=== PATIENT | female | born 1930 | race Caucasian/White ===

== ENCOUNTER → 2017-03-17 | Outpatient (CLI) | payer OTHER ==
[~2017-03-17] VITALS: Ht 157.5 cm; Wt 67.6 kg
[~2017-03-17] MED LIST: ACETAMINOPHEN-1 EAC1; ACETAMINOPHEN-1 EAC1 PO; APAP W/CODEINE1 TA2 PO; APRISO0.375 GM PO; BYSTOLIC 5 MG5 M1 PO; BYSTOLIC20 MG PO; CALCITRIOL0.5 MCG PO; CARAFATE 11 GM/10 M1 PO; CARVEDILOL25 MG PO; CHLORTHALIDONE; CHLORTHALIDONE25 MG PO; CIPROFLOXACIN500 M1 PO; COLACE100 MG PO; COLESTID1 GM PO; COREG CR80 MG PO; COUMADIN 2 MG TA2 M1; DEMADEX20 MG PO; DEXILANT60 MG PO; DILTIAZEM 24HR180 MG PO; DILTIAZEM 24HR240 M1 PO; DIOVAN 80 MG TA80 M1 PO; DIOVAN HCT 3201 EACH PO; DIOVAN160 MG PO; DIOVAN320 MG PO; DOCUSATE SODIU100 MG PO; DRAMAMINE50 MG PO; ELIQUIS2.5 MG PO; ENTOCORT EC3 MG PO; ERGOCALCIF50000 UNIT PO; FENTANYL PA25 MCG/HR TD; GABAPENTIN 100100 MG; GABAPENTIN 100100 MG PO; GUANFACINE HCL1 MG PO; HYDROCODONE-AP1 EAC6 PO; HYDROCORTISONE45 G1 TP; HYTRIN 2MG CAPSU2 M1 PO; HYTRIN 2MG CAPSU2 MG PO; IMODIUM A-D2 MG PO; KEFLEX500 MG PO; KLOR-CON 1010 MEQ PO; LASIX 20 MG TAB20 MG PO; LASIX 40 MG TAB40 M2 PO; LEVOTHROID150 MC1 PO; LEVOTHROID50 MCG PO; LEVOTHYROXIN0.025 MG PO; LEVOTHYROXINE0.05 MG PO; LEVSIN0.125 MG SUBLING; LOPERAMIDE 2 MG2 M1 PO; MELOXICAM7.5 MG PO; METOCLOPRAMIDE 55 M1 PO; MOBIC7.5 MG PO; MORPHINE SULFAT15 M3; NORCO 5-325 TA1 EACH PO; OSCIMIN SL0.125 MG SUBLING; OXYCODONE-ACET1 EAC2 PO; OXYCONTIN30 MG PO; OXYCONTIN40 MG PO; PERCOCET 10-321 EACH PO; PERCOCET 10-651 EACH PO; PERCOCET 5-3251 EACH PO; PRILOSEC 20 MG20 MG PO; PRILOSEC PO; PROCTOSOL HC; PROCTOSOL HC 2.5%; PROLIA60 MG/1 ML INJ; TIROSINT25 MCG PO; TRAZODONE 150150 M1 PO; TRAZODONE HCL50 MG PO; Trazodone PO; VIBERZI100 MG PO; VITAMIN D 5050000 I1 PO; VITAMIN D1000 UNI1 PO; VITAMIN D250000 UNIT PO; XARELTO15 MG PO; ZOFRAN ODT4 MG PO
[2017-03-17 12:33] VITALS: BP 133/68
== END | disposition home or self-care (01) ==
LOC: PAIN 06:53
DX: M54.16 Radiculopathy, lumbar region (principal); Z98.890 Other specified postprocedural states

== ENCOUNTER → 2017-04-14 | Outpatient (CLI) | payer OTHER ==
[~2017-04-14] VITALS: Ht 157.5 cm; Wt 67.0 kg
[~2017-04-14] MED LIST changes: +MEDROLDOSEPACK PO; +VOLTAREN GEL 1100 G2 TOP
--- NOTE | ~2017-04-14 | HPC ---
[facility] [place] [address] PAIN MANAGEMENT CONSULTATION Name: NIMCOAYDEN GORDON Room #: REG Morgan Burkett#: [id number] Admission: 04/14/17 Attend Phys: Ismael Edwards DO Discharge: Date of : 30 Report #: [id number] THIS REPORT FOR: //name// CC: Brock Edwards The patient is an 87-year-old female, I have treated for some time for lumbar radiculopathy, though only recently I took over management of her high risk complex medications. She has been carried on a supratherapeutic load of over 120 mg of morphine a day (OxyContin 40 mg b.i.d.). We dropped that down to OxyContin 30 mg b.i.d. with Tylenol No.3 for breakthrough pain at last visit on 03/17/2017. Returns to pain clinic today noting that while this had afforded good relief, she has had significant concerns recently with exacerbation of pain in her right wrist. She was seen for prolonged visit today, from 15:00-15:30, greater than 50% of this 25+ minute visit was spent counseling the patient. Right hand and wrist pain developed after a trip to [place] with her grandchildren. She was ultimately seen in the ER, diagnosed with de Quervain's tenosynovitis of right wrist. She is wearing a splint presently. She states she started taking her Tylenol No.3 more aggressively, was taking 4-6 and then yesterday 10 in a day. She presents to pain clinic noting subjective pain score is 0 in her chronic back pain, but 8 in her right wrist. She is wearing a brace on her right wrist. PHYSICAL EXAMINATION: GENERAL: Shows an 87-year-old female, BMI is 27 kilograms per meter squared. VITAL SIGNS: Blood pressure is modestly elevated ____, pulse 65, respirations 18. NEUROLOGIC: Alert and oriented to person, place and time, judged to be a reasonable historian. Again wearing a splint in the right wrist with some subjective swelling and tenderness at the primary carpal-metacarpal joint, radial aspect of her hand. Cervical range of motion is full. Rises from chair. Gait is tandem. Lower extremity strength is preserved. We reviewed the fact that opiate medications are being used to provide analgesia adequate to support activities of daily living, not attempting to achieve a specific pain score on the 0-10 Visual Analog Scale. The current opiate medications are providing sufficient analgesia to allow the patient to participate in activities of daily living. The patient is not exhibiting any aberrant behavior suggestive of drug diversion. The patient is not having any adverse reactions to medications. The patient is not suffering from daytime somnolence or mental acuity changes. The patient is managing opiate-induced constipation with appropriate woej-kod-mbcwwqv agents and dietary considerations. The patient was counseled on concern for caution with operating [address] [address] PAIN MANAGEMENT CONSULTATION Name: NIMCOAYDEN GORDON Room #: REG RIGOBERTO Burkett#: [id number] Admission: 04/14/17 Attend Phys: Ismael Edwards DO Discharge: Date of : 30 Report #: [id number] a motor vehicle while using opiate medications. A physical exam was performed and the patient's functional status was evaluated. All patients with back pain were advised against the bed rest greater than 4 days and were advised to return to normal activities. Pain score assessment was noted and the treatment plan was reviewed with the patient. All current medications, both prescribed and OTC were reviewed and reconciled on the electronic medical record. Tobacco screening was accomplished and smoking cessation was advised when indicated. BMI was noted and diet/exercise modification was recommended for all patients following outside normal parameters. I reviewed with the patient today their responsibilities to safeguard prescription medications, reviewed their responsibility to utilize medications only as prescribed by the physician. They are to seek and receive pain medications only from 1 physician group ( [facility]). They are to use 1 pharmacy and keep the clinic informed if they change pharmacies. Their responsibilities include making followup visits in a timely fashion and to avoid abrupt discontinuation of medication usage. Their responsibilities further include bringing their medications (bottles from the pharmacy with residual pills) to the visit for possible confirmation of pill counts and the patient understands it is their responsibility to submit to random drug screens to ensure both that the medications prescribed are present, and that no other controlled substances are present. All prescriptions provided today were generated electronically. ASSESSMENT: 1. Chronic pain syndrome requiring complex medication management. 2. De Quervain's tenosynovitis right wrist. 3. Lumbar radiculopathy status post decompressive laminectomy. RECOMMENDATION: Discussion with the patient today about therapeutic option. She is on a blood thinner for DVT, cannot take nonsteroidal anti-inflammatory medications. We elected to give the patient a Medrol Dosepak today, start her on Voltaren gel topically for the right wrist, this should ultimately quite down. Continue OxyContin 30 mg b.i.d. (she has 4 OxyContin 40 mg tablets left, I suggested she take them daily for the next 4 days with OxyContin 30 at night and then resume OxyContin 30 mg b.i.d. We will continue the patient on Tylenol No.3 for breakthrough pain, limit 4 a day. Follow up in 1 month for reevaluation. Hopefully, we can drop p.r.n. Tylenol down. Discharged in good and stable condition. I did ____ investigation on the patient, she gets all of her prescriptions [facility] [address] [place] [address] PAIN MANAGEMENT CONSULTATION Name: NIMCOAYDEN GORDON Room #: REG Morgan Burkett#: [id number] Admission: 04/14/17 Attend Phys: Ismael Edwards DO Discharge: Date of : 30 Report #: [id number] filled in [place], ____ is unremarkable. Discharged in good and stable condition after prolonged visit. By: [id number] Ismael Edwards DO /nt
[2017-04-14 14:36] VITALS: BP 186/78
== END | disposition home or self-care (01) ==
LOC: PAIN 07:16
DX: M65.4 Radial styloid tenosynovitis [de Quervain] (principal); G89.4 Chronic pain syndrome; M25.531 Pain in right wrist; M54.16 Radiculopathy, lumbar region; I12.9 Hypertensive chronic kidney disease with stage 1 through stage 4 chronic kidney disease, or unspecified chronic kidney disease; N18.3 Chronic kidney disease, stage 3 (moderate); Z79.891 Long term (current) use of opiate analgesic; Z98.890 Other specified postprocedural states; Z79.899 Other long term (current) drug therapy; Z88.8 Allergy status to other drugs, medicaments and biological substances; Z88.2 Allergy status to sulfonamides

== ENCOUNTER → 2017-05-15 | Outpatient (CLI) | payer OTHER ==
[~2017-05-15] VITALS: Ht 157.5 cm; Wt 66.3 kg
[~2017-05-15] MED LIST changes: +OXYCONTIN20 M1 PO
--- NOTE | ~2017-05-15 | HPC ---
[facility] [place] [address] PAIN MANAGEMENT CONSULTATION Name: AYDEN RINALDI Room #: REG RIGOBERTO Burkett#: [id number] Admission: 05/15/17 Attend Phys: Ismael Edwards DO Discharge: Date of : 30 Report #: [id number] THIS REPORT FOR: //name// CC: Brock Edwards DATE OF SERVICE: 05/15/2017 The patient is an 87-year-old female being treated for lumbar radiculopathy, status post decompressive laminectomy, complex medication management and component of right wrist pain. Last visit 04/14/2017. We had weaned the patient down from OxyContin 40 mg b.i.d. to 30 mg b.i.d. back in March. In April, she was doing well. She uses Tylenol No. 3 for breakthrough pain and tells me today she really has used it very little this past month. I had given her Medrol Dosepak last visit because she had some wrist pain (De Quervain tenosynovitis in the right wrist). That resolved, but now she has some pain in the left hand with swelling in the left middle finger. Her general road supervisor physician, Dr. Wilson thought this may represent a pseudogout, he ordered multiple diagnostic studies, lab studies having been drawn, but not returned. He did again start her on another Medrol Dosepak. She returns to pain clinic today noting overall pain is 2 on a VAS, although she does have some pain in that left hand, this is primarily her back pain. She notes she is able to participate in most activities of daily living. She is using a walker today, which she uses occasionally. She uses a cane occasionally and around the house, she simply "furniture walks." She is desirous of continuing to wean her opiate. Today, we discussed moving down from OxyContin 30 mg b.i.d. to 20 mg b.i.d. Continue with Tylenol No. 3 for breakthrough pain. Told her we will try this for 30 days and follow up. We reviewed the fact that opiate medications are being used to provide analgesia adequate to support activities of daily living, not attempting to achieve a specific pain score on the 0-10 Visual Analog Scale. The current opiate medications are providing sufficient analgesia to allow the patient to participate in activities of daily living. The patient is not exhibiting any aberrant behavior suggestive of drug diversion. The patient is not having any adverse reactions to medications. The patient is not suffering from daytime somnolence or mental acuity changes. The patient is managing opiate-induced constipation with appropriate bcql-dgs-jymufml agents and dietary considerations. The patient was counseled on concern for caution with operating a motor vehicle while using opiate medications. A physical exam was performed and the patient's functional status was evaluated. All patients with back pain were advised against the bed rest greater than 4 days and were advised to return to normal activities. Pain score assessment was noted and the treatment plan was reviewed with the patient. All current [address] [address] PAIN MANAGEMENT CONSULTATION Name: MANICAROLYNAYDEN Room #: KYLER Burkett#: [id number] Admission: 05/15/17 Attend Phys: Ismael Edwards DO Discharge: Date of : 30 Report #: [id number] medications, both prescribed and OTC were reviewed and reconciled on the electronic medical record. Tobacco screening was accomplished and smoking cessation was advised when indicated. BMI was noted and diet/exercise modification was recommended for all patients following outside normal parameters. I reviewed with the patient today their responsibilities to safeguard prescription medications, reviewed their responsibility to utilize medications only as prescribed by the physician. They are to seek and receive pain medications only from 1 physician group ( [facility]). They are to use 1 pharmacy and keep the clinic informed if they change pharmacies. Their responsibilities include making followup visits in a timely fashion and to avoid abrupt discontinuation of medication usage. Their responsibilities further include bringing their medications (bottles from the pharmacy with residual pills) to the visit for possible confirmation of pill counts and the patient understands it is their responsibility to submit to random drug screens to ensure both that the medications prescribed are present, and that no other controlled substances are present. All prescriptions provided today were generated electronically. ASSESSMENT AND PLAN: Symptomatic lumbar radiculopathy, status post decompressive laminectomy requiring high risk complex medication management. The patient is desirous of weaning off of opiates. We have elected to continue today OxyContin 30 mg b.i.d. weaned to 20 mg b.i.d., prescription for same written (OxyContin 20 mg b.i.d., #60 tablets). She does not require a prescription for Tylenol No. 3. She has about half with #120 tablet prescription left. I told her we will phone that prescription in if needed. By: [id number] Ismael Edwards DO /nt
[2017-05-15 13:30] VITALS: BP 141/64
== END | disposition home or self-care (01) ==
LOC: PAIN 06:19
DX: M54.16 Radiculopathy, lumbar region (principal); Z79.899 Other long term (current) drug therapy; Z98.890 Other specified postprocedural states

== ENCOUNTER → 2017-06-12 | Outpatient (CLI) | payer OTHER ==
[~2017-06-12] VITALS: Ht 157.5 cm; Wt 69.1 kg
[~2017-06-12] MED LIST changes: +OXYCONTIN15 MG PO
--- NOTE | ~2017-06-12 | HPC ---
[facility] [place] [address] PAIN MANAGEMENT CONSULTATION Name: NIMCOAYDEN Mary Room #: REG FRANCISCO Kwadwo#: [id number] Admission: 06/12/17 Attend Phys: Ismael Edwards DO Discharge: Date of : 30 Report #: [id number] THIS REPORT FOR: //name// CC: Brock Edwards The patient is a very pleasant 87-year-old female, long treated for symptomatic lumbar radiculopathy status post decompressive laminectomy, component of complex medication management with some right wrist pain. We had been weaning high dose opiates, down from OxyContin 40 mg b.i.d. to 30 and last visit down to 20 mg b.i.d. Returns to pain clinic today noting the wean is doing well. Chronic lumbar radicular pain is the biggest issue, she has some ongoing left L3 radicular pain. She had good relief with the lumbar epidural injection back in March (prior injection had been in August 2016). She notes greater than 60% relief for 6 weeks with pain gradually recurring. Again, doing reasonably well with the opiate wean as well. Notes her general pain score averages 5 on a VAS. Pain back and bilateral legs, left greater than right. PHYSICAL EXAMINATION: Shows an 87-year-old female, BMI is 27.9 kg/m2. Vital signs are stable as noted on the EMR. Does not use tobacco products. Rises from chair using armrest. Modestly antalgic gait. Positive straight leg raise on the left. Diffuse tenderness across the low back. No discrete trigger points are noted. We reviewed diagnostic findings including MRI from 11/10/2015, noting prior laminectomy at L5-S1 with some subluxation, mild facet degenerative changes at L4-L5 and L3-L4, slight left convex thoracolumbar curvature. We reviewed the fact that opiate medications are being used to provide analgesia adequate to support activities of daily living, not attempting to achieve a specific pain score on the 0-10 Visual Analog Scale. The current opiate medications are providing sufficient analgesia to allow the patient to participate in activities of daily living. The patient is not exhibiting any aberrant behavior suggestive of drug diversion. The patient is not having any adverse reactions to medications. The patient is not suffering from daytime somnolence or mental acuity changes. The patient is managing opiate-induced constipation with appropriate ivqv-gsh-ifebfbm agents and dietary considerations. The patient was counseled on concern for caution with operating a motor vehicle while using opiate medications. A physical exam was performed and the patient's functional status was evaluated. All patients with back pain were advised against the bed rest greater than 4 days and were advised to return to normal activities. Pain score assessment was noted and the treatment plan was reviewed with the patient. All current medications, both prescribed and OTC were reviewed and reconciled on the electronic medical record. Tobacco screening was accomplished and smoking cessation was advised when indicated. BMI was noted and diet/exercise [address] [address] PAIN MANAGEMENT CONSULTATION Name: AYDEN RINALDI Room #: REG RIGOBERTO Burkett#: [id number] Admission: 06/12/17 Attend Phys: Ismael Edwards DO Discharge: Date of : 30 Report #: [id number] modification was recommended for all patients following outside normal parameters. I reviewed with the patient today their responsibilities to safeguard prescription medications, reviewed their responsibility to utilize medications only as prescribed by the physician. They are to seek and receive pain medications only from 1 physician group ( [facility]). They are to use 1 pharmacy and keep the clinic informed if they change pharmacies. Their responsibilities include making followup visits in a timely fashion and to avoid abrupt discontinuation of medication usage. Their responsibilities further include bringing their medications (bottles from the pharmacy with residual pills) to the visit for possible confirmation of pill counts and the patient understands it is their responsibility to submit to random drug screens to ensure both that the medications prescribed are present, and that no other controlled substances are present. All prescriptions provided today were generated electronically. ASSESSMENT: 1. Chronic pain syndrome, requiring high risk complex medication management. 2. Acute exacerbation of lumbar radiculopathy in this patient status post decompressive laminectomy. RECOMMENDATIONS: 1. Continue opiate wean, we will drop from OxyContin 20 mg b.i.d. to 15 mg b.i.d. for 20 days, after 20 days (40 tablets), I will have her drop down to one tablet q. a.m. for 20 days. Continue Tylenol No. 3 for breakthrough pain, in fact I have taken the liberty of writing for 120 Tylenol No. 3. If when the patient drops to OxyContin 15 mg 1 a day from 2 a day and notes any significant opiate withdrawal symptoms, we will have her simply continue b.i.d. and I will see her back in 1 month, we will likely plan on dropping down to OxyContin 10 mg b.i.d. with a similar plan, b.i.d. for 20 days and then 1 a day for 20 days, then off. 2. Epidural injection under fluoroscopy today. PROCEDURE: Lumbar epidural injection under fluoroscopy. PROCEDURE NOTE: After both written and informed consent to include risk of spinal cord damage, increased pain, weakness and dural puncture, the patient was taken to the fluoroscopy suite, placed in the prone position. After sterile prep and drape, a skin wheal with lidocaine was raised. A 22-gauge epidural Tuohy needle was inserted in the midline at L3-L4 with good loss to resistance. Negative aspiration for cerebrospinal fluid or blood was noted. Then 1 mL of Omnipaque under biplanar fluoroscopy showed good spread within the epidural space. This was followed with 80 mg of triamcinolone plus 1 mL of 1.5% preservative-free Xylocaine, 0.5 mL Xylocaine was then injected to flush the [facility] [address] [place] [address] PAIN MANAGEMENT CONSULTATION Name: AYDEN RINALDI Room #: [facility]#: [id number] Admission: 06/12/17 Attend Phys: Ismael Edwards DO Discharge: Date of : 30 Report #: [id number] needle; it was removed. The patient was monitored for an appropriate period of time and discharged in good and stable condition. <ELECTRONICALLY SIGNED> By: Ismael Edwards DO 06/13/17 0949 [id number] [id number] Ismael Edwards DO /nt
[2017-06-12 13:04] VITALS: BP 153/75
== END | disposition home or self-care (01) ==
LOC: PAIN 07:09
DX: M54.16 Radiculopathy, lumbar region (principal); G89.4 Chronic pain syndrome; M25.531 Pain in right wrist; I12.9 Hypertensive chronic kidney disease with stage 1 through stage 4 chronic kidney disease, or unspecified chronic kidney disease; N18.3 Chronic kidney disease, stage 3 (moderate); D64.9 Anemia, unspecified; Z98.890 Other specified postprocedural states; Z79.891 Long term (current) use of opiate analgesic; Z88.2 Allergy status to sulfonamides; Z88.6 Allergy status to analgesic agent; Z88.8 Allergy status to other drugs, medicaments and biological substances; Z88.1 Allergy status to other antibiotic agents; Z79.899 Other long term (current) drug therapy

== ENCOUNTER → 2017-08-04 | Outpatient (CLI) | payer OTHER ==
[~2017-08-04] VITALS: Ht 157.5 cm; Wt 68.2 kg
[~2017-08-04] MED LIST changes: +TRAMADOL 50 MG50 MG PO
--- NOTE | ~2017-08-04 | HPC ---
[facility] [place] [address] PAIN MANAGEMENT CONSULTATION Name: AYDEN RINALDI Mary [id number] Admission: 08/04/17 Attend Phys: Ismael Edwards DO Discharge: Date of : 30 Report #: [id number] THIS REPORT FOR: //name// CC: Brock Edwards DATE OF SERVICE: 08/04/2017 The patient is an 87-year-old female, prior seen for symptomatic lumbar radiculopathy status post decompressive laminectomy, chronic pain requiring high risk complex medication management, component of SI mediated pain, history of right wrist pain. Last visit 06/12/2017, we had successfully continued opiate wean. She had been taking OxyContin 40 mg b.i.d., weaned down to 20, 15, 10 and then off. Returns to pain clinic today taking only Tylenol No. 3 for breakthrough pain. She does note that last weekend while standing in line for greater than an hour developed acute axial back pain, left low back. No radicular pain is noted. PHYSICAL EXAMINATION: Shows a pleasant 87-year-old female, BMI is 27.5 kilograms per meter squared. Vital signs show significant hypertension, blood pressure 215/90, repeated over time and came down to about 170/72, pulse is in the 60s. Alert and oriented to person, place and time, judged to be a reasonable historian, +1 pretibial edema lower extremities, left greater than right. Does have an antalgic gait favoring the low back and left leg. Positive straight leg raise on the left. Grossly positive Rossi test on the left. ASSESSMENT: Symptomatic left sacroiliac mediated pain by clinical exam and history, component of lumbar radiculopathy status post decompressive laminectomy with good relief following epidural injections, last injection was in June, prior injection had been in March. ASSESSMENT: 1. Symptomatic left sacroiliac mediated pain. 2. Lumbar radiculopathy by history, status post decompressive laminectomy. RECOMMENDATIONS: 1. Left SI joint injection under fluoroscopy today. 2. Follow up in 2 weeks for reevaluation. Consider epidural injection under fluoroscopy if indicated clinically. PROCEDURE: Left SI joint injection under fluoroscopy. PROCEDURE NOTE: After written informed consent was obtained, the patient was taken to the fluoroscopy suite and placed in prone position. After sterile prep and drape, skin wheal was raised. A 22-gauge sty[place] [address] PAIN MANAGEMENT CONSULTATION Name: AYDEN RINALDI Mary Room #: REG RIGOBERTO Burkett#: [id number] Admission: 08/04/17 Attend Phys: Ismael Edwards DO Discharge: Date of : 30 Report #: [id number] contact the inferior aspect of left SI joint. Negative aspiration was accomplished. 1 mL of Omnipaque was injected which showed spread within the joint. This was followed with 40 mg triamcinolone plus 2 mL of 0.5% preservative-free bupivacaine. Needle was removed, area was cleansed, Band-Aids applied. The patient monitored for an appropriate period of time, discharged in good and stable condition. <ELECTRONICALLY SIGNED> By: Ismael Edwards DO 08/06/17 0834 [id number] Ismael Edwards DO /nt
[2017-08-04 11:05] VITALS: BP 213/96
== END | disposition home or self-care (01) ==
LOC: PAIN 07-10 09:03
DX: M53.3 Sacrococcygeal disorders, not elsewhere classified (principal); M54.16 Radiculopathy, lumbar region; I12.9 Hypertensive chronic kidney disease with stage 1 through stage 4 chronic kidney disease, or unspecified chronic kidney disease; N18.3 Chronic kidney disease, stage 3 (moderate); D64.9 Anemia, unspecified; G89.29 Other chronic pain; Z79.891 Long term (current) use of opiate analgesic; Z98.890 Other specified postprocedural states; Z88.0 Allergy status to penicillin; Z88.2 Allergy status to sulfonamides; Z88.8 Allergy status to other drugs, medicaments and biological substances; Z88.6 Allergy status to analgesic agent; Z79.899 Other long term (current) drug therapy

== ENCOUNTER → 2017-08-19 | Outpatient (CLI) | payer OTHER | LOC: MRI 13:21 | DX: M47.26 Other spondylosis with radiculopathy, lumbar region (principal); M81.0 Age-related osteoporosis without current pathological fracture; M48.061 Spinal stenosis, lumbar region without neurogenic claudication; M53.3 Sacrococcygeal disorders, not elsewhere classified ==

== ENCOUNTER → 2017-08-21 | Outpatient (CLI) | payer OTHER ==
[~2017-08-21] VITALS: Ht 157.5 cm; Wt 66.4 kg
--- NOTE | ~2017-08-21 | HPC ---
[facility] [place] [address] PAIN MANAGEMENT CONSULTATION Name: AYDEN RINALDI Mary [facility] [id number] Admission: 08/21/17 Attend Phys: Ismael Edwards DO Discharge: Date of : 30 Report #: [id number] THIS REPORT FOR: //name// CC: Brock Edwards HISTORY OF PRESENT ILLNESS: The patient is an 87-year-old female, prior seen in the pain clinic on 08/04/2017, being treated for symptomatic lumbar radiculopathy status post decompressive laminectomy. She was given a left SI joint injection at last visit. She returns to the pain clinic today. She notes that the prior injection afforded 20% relief for 2 days and then, the pain recurred. She notes the pain currently is in the low back down the left leg to the ankle. Has some paresthesia and numbness and tingling. She rates the pain is 7 on VAS. PHYSICAL EXAMINATION: GENERAL: Shows an 87-year-old female, BMI is 26.8 kilograms per meter squared. VITAL SIGNS: Show modest hypertension 165/90, pulse 70 and respirations 20. MUSCULOSKELETAL: Rises to the armrest, modestly antalgic gait, positive straight leg raise on the left with decreased left hip flexion, lower extremity extension strength. ASSESSMENT: Symptomatic lumbar radiculopathy by clinical exam and history. RECOMMENDATIONS: 1. Referral to physical therapy for core strengthening and balance. 2. Epidural injection under fluoroscopy today, L4-L5 (the patient has been off her Eliquis for 3 days). Resume Eliquis tonight. Follow up in 4 weeks to evaluate efficacy. We did review MRI from 08/19/2017. Notes that L4-L5 with slightly asymmetric left-sided disk bulging, facet arthropathy, bilateral ligamentum flavum hypertrophy and mild left inferior neural foraminal encroachment. Canal is minimally narrowed to 8 mm. ASSESSMENT: Symptomatic lumbar radiculopathy. PROCEDURE: Lumbar epidural injection under fluoroscopy. PROCEDURE NOTE: After both written and informed consent to include risk of spinal cord damage, increased pain, weakness and dural puncture, the patient was taken to the fluoroscopy suite, placed in the prone position. After sterile prep and drape, a skin wheal with lidocaine was raised. A 22-gauge epidural Tuohy needle was inserted in the midline at L4-L5 with good loss to resistance. Negative aspiration for cerebrospinal fluid or blood was noted. Then 1 mL of Omnipaque under biplanar fluoroscopy showed good spread [place] [address] PAIN MANAGEMENT CONSULTATION Name: AYDEN RINALDI Mary Room #: REG [facility] BeatriceJosse#: [id number] Admission: 08/21/17 Attend Phys: Ismael Edwards DO Discharge: Date of : 30 Report #: [id number] space. This was followed with 80 mg of triamcinolone plus 1 mL of 1.5% preservative-free Xylocaine, 0.5 mL Xylocaine was then injected to flush the needle; it was removed. The patient was monitored for an appropriate period of time and discharged in good and stable condition. <ELECTRONICALLY SIGNED> By: Ismael Edwards DO 08/22/17 0650 1634 0136 Ismael Edwards DO /nt
[2017-08-21 11:17] VITALS: BP 165/90
== END | disposition home or self-care (01) ==
LOC: PAIN 07:12
DX: M54.16 Radiculopathy, lumbar region (principal); G89.29 Other chronic pain; I12.9 Hypertensive chronic kidney disease with stage 1 through stage 4 chronic kidney disease, or unspecified chronic kidney disease; N18.3 Chronic kidney disease, stage 3 (moderate); Z88.6 Allergy status to analgesic agent; Z98.890 Other specified postprocedural states; Z88.2 Allergy status to sulfonamides; Z88.8 Allergy status to other drugs, medicaments and biological substances; Z79.899 Other long term (current) drug therapy

== ENCOUNTER → 2017-09-18 | Outpatient (CLI) | payer OTHER ==
[~2017-09-18] VITALS: Ht 157.5 cm; Wt 69.1 kg
[~2017-09-18] MED LIST changes: +ALLOPURINOL 10100 M1 PO; +OXYCODONE HCL E30 MG PO; +ROXICODONE5 M2 PO
--- NOTE | ~2017-09-18 | HPC ---
[facility] [place] [address] PAIN MANAGEMENT CONSULTATION Name: PAULINOHELGAAYDEN Room #: REG RIGOBERTO Calderon.#: [id number] Admission: 09/18/17 Attend Phys: Ismael Edwards DO Discharge: Date of : 30 Report #: [id number] THIS REPORT FOR: //name// CC: Brock Edwards HISTORY OF PRESENT ILLNESS: The patient is a very pleasant 87-year-old female being treated for lumbar radiculopathy status post decompressive laminectomy, neuropathic pain, neurogenic claudication and some component of SI mediated pain requiring high risk complex medication management. The patient was last seen in pain clinic on 08/21/2017. Did a lumbar epidural injection at L4-L5 with some transient improvement in baseline pain, the patient notes perhaps 20% for a week. She returns to pain clinic today for prolonged visit, she was seen from 11:00 a.m. to 11:30 greater than 50% of this 25+ minute visit was spent counseling the patient. Earlier this year she had come to me requesting assistance with weaning off of high dose opiate analgesics. She had been stable on OxyContin 40 mg b.i.d. (roughly 120 mEq of morphine daily) for a number of years. She felt she was doing better overall and we assisted her with a gradual wean. She actually got down to no opiate analgesics at last visit, but again was having some increasing pain. She returns to pain clinic today noting pain has become quite problematic since I last saw her. She did contact her medical technologist generalist physician, Dr. Brock Wilson, who did resume oxycodone extended release 20 mg b.i.d. She presents to pain clinic today noting pain remains problematic. She rates it 6 on a VAS, primarily back, left leg to the ankle. She describes chronic pain with burning dysesthesia in leg. Again, rates at 6 on a visual analog scale. Most concerningly, she notes that she has developed some insensate urinary incontinence. Neurogenic claudication seems to be getting worse, walking and standing greater than about 5 minutes exacerbates significant left lumbar radicular pain. She has subjective weakness in the left leg. PHYSICAL EXAMINATION: Shows a pleasant 87-year-old female, BMI is 27.9 kilograms per meter squared. Blood pressure 155/86, pulse 70, respirations 16. Rises from chair using armrest, has an antalgic gait favoring the left leg. Left leg strength is about 3/5 to all muscle groups tested, about 4/5 on the right. Straight leg raise is grossly positive at 30 degrees on the left. We reviewed diagnostic findings including MRI, which I had ordered, was obtained on 08/19/2017. L4-L5 notes some disc bulging slightly asymmetric to the left, facet arthropathy, ligamentum flavum hypertrophy combining to cause some narrowing at about 8 mm in the central canal. There is some patchy marrow [address] [address] PAIN MANAGEMENT CONSULTATION Name: AYDEN RINALDI Room #: REG RIGOBERTO Burkett#: [id number] Admission: 09/18/17 Attend Phys: Ismael Edwards DO Discharge: Date of : 30 Report #: [id number] signal changes, possibly representing metastatic disease, myeloma, sclerosis, the study was essentially unchanged from prior study of 10/2015. ASSESSMENT: Symptomatic lumbar radiculopathy with ongoing radicular symptoms, neurogenic claudication and more concerningly development of insensate urinary incontinence. RECOMMENDATION: 1. We will increase oxycodone extended release to 30 mg b.i.d., I pointed out to the patient that this is essentially the ceiling dose of opiate analgesics recommended, 90 mEq of morphine daily. 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 Norris Canales, Neurosurgery). 2. Have the patient follow up after a neurosurgical evaluation to review options and to evaluate efficacy of medication changes. We may consider resuming a membrane stabilizing agent, either sodium or calcium channel (gabapentin versus Trileptal). Discharged in good and stable condition after prolonged visit, greater than 50% of time spent counseling the patient, reviewing therapeutic options and concerns. <ELECTRONICALLY SIGNED> By: Ismael Edwards DO 09/19/17 0757 [id number] 2147 Ismael Edwards DO /nt
[2017-09-18 10:54] VITALS: BP 155/86
== END ==
LOC: PAIN 07:18
DX: M54.16 Radiculopathy, lumbar region (principal); G95.19 Other vascular myelopathies; Z79.899 Other long term (current) drug therapy; Z98.890 Other specified postprocedural states

== ENCOUNTER → 2017-10-06 | Outpatient (CLI) | payer OTHER ==
[~2017-10-06] VITALS: Ht 157.5 cm; Wt 68.2 kg
--- NOTE | ~2017-10-06 | HPC ---
[facility] [place] [address] PAIN MANAGEMENT CONSULTATION Name: MANITERESAHELGAAYDEN Room #: REG [facility] Kwadwo#: [id number] Admission: 10/06/17 Attend Phys: Ismael Edwards DO Discharge: Date of : 30 Report #: [id number] THIS REPORT FOR: //name// CC: Brock Edwards DATE OF SERVICE: 10/06/2017 HISTORY OF PRESENT ILLNESS: The patient is a very pleasant 87-year-old female being treated for lumbar radiculopathy status post decompressive laminectomy. She has a significant ongoing pain. MRI on 08/19/2017 notes L4-L5 to have facet hypertrophy and asymmetric disk on the left side narrowing the neural foramen. Right side is maintained. Canals narrowed to about 8 mm. She has fairly classic left L4 radicular pain that is significantly impacting function. She rates her pain despite resumption of oxycodone (OxyContin 30 mg b.i.d.) up to an 8-9 with activity. PHYSICAL EXAMINATION: GENERAL: Shows pleasant 87-year-old female, BMI is 27.5 kilograms per meter squared. VITAL SIGNS: Stable. MUSCULOSKELETAL: Rises from chair using armrest, uses a walker for balance. Positive straight leg raise on left with decreased left hip flexion, lower extremity extension strength. ASSESSMENT: Symptomatic lumbar radiculopathy, status post decompressive laminectomy, requiring complex medication management. RECOMMENDATION: 1. We will renew OxyContin 30 mg b.i.d. for another 30 days. 2. I have endeavored to reach out to [facility] to see if we can get her in to see a surgeon for the opinion regarding decompression. 3. Left L4-L5 transforaminal epidural injection under fluoroscopy today. PROCEDURE: Left transforaminal epidural injection under fluoroscopy. The patient has been off Eliquis for 3 days. PROCEDURE NOTE: After both written and informed consent was obtained including risk of spinal cord damage, infection, increased pain and paralysis, the patient agreed to proceed. The patient was taken to the fluoroscopy suite, placed in a prone position with appropriate abdominal bolstering. After sterile prep with ChloraPrep and sterile drape, a skin wheal with 1% Xylocaine was raised. A 22 gauge 4-1/2 inch epidural Tuohy needle was inserted. From an oblique approach into the posterior-superior aspect of the left L4-L5 neural foramen with continuous pressure on the glass syringe plunger for loss of resistance. [facility] [address] [place] [address] PAIN MANAGEMENT CONSULTATION Name: MANITERESAHELGAAYDEN Room #: REG [facility].#: [id number] Admission: 10/06/17 Attend Phys: Ismael Edwards DO Discharge: Date of : 30 Report #: [id number] syringe was filled with 2 cc of 0.1 Xylocaine. The glass loss of resistance syringe was removed. A low volume extension tubing was connected, negative aspiration was accomplished for cerebrospinal fluid or blood. 1 mL of Omnipaque was injected which showed spread both within the epidural space and laterally along the nerve root. This was followed with 80 mg of triamcinolone plus 1 mL of 1.5% preservative-free Xylocaine. Needle was partially withdrawn, 0.5 mL of Xylocaine was injected to clear the needle and the needle was removed. The area was cleansed, band-aid was applied. The patient was allowed to ambulate to the recovery room, discharged in good and stable condition. <ELECTRONICALLY SIGNED> By: Ismael Edwards DO 10/08/17 1417 1641 0405 Ismael Edwards DO /nt
[2017-10-06 14:07] VITALS: BP 125/55
== END | disposition home or self-care (01) ==
LOC: PAIN 07:10
DX: M54.16 Radiculopathy, lumbar region (principal); Z98.890 Other specified postprocedural states

== ENCOUNTER → 2017-11-13 | Outpatient (CLI) | payer OTHER ==
[~2017-11-13] VITALS: Ht 157.5 cm; Wt 68.0 kg
--- NOTE | ~2017-11-13 | HPC ---
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 Last visit 10/06/2017, we did a left L4-L5 transforaminal epidural injection, which did afford some transient relief. We have continued on OxyContin 30 mg b.i.d. with nominal efficacy. Referred to [facility]. We had an MRI on 08/19/2017. It did show asymmetric disk bulging at L4-L5, some foraminal encroachment and stenosis. There was patchy marrow infiltration and a CT was recommended, this has been accomplished. The patient returns to pain clinic today, seen in company of her daughter, who is supportive. We had a prolonged visit, the patient was seen from 10:33-11:00 a.m., greater than 50% of this 25+ minute visit was spent counseling the patient. The patient notes that she is frustrated with ongoing pain concerns. [facility] suggested that patient really is not a further surgical candidate at this point. They did suggest possibly a spinal cord stimulator or an intrathecal pump. The patient is complaining primarily of pain, low back and left buttock. Radiates into the groin down to the thigh to the ankle. Pain is present immediately upon arising. She notes functional status is significantly impacted. She has been using a walker to help with balance and ambulation. She rates her pain fairly high 8-9 on a VAS when standing. Physical exam otherwise shows a pleasant 87-year-old female, BMI is 27.4 kilograms per meter squared. 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 Obvious osteoarthritic nodules in the hands. Blood pressure 147/68, pulse 71. She has not fallen in the last 3 months, but again she is using a walker. She is on Eliquis presently. Opiate consent to treat contract has been signed. CT scan of the lumbar spine was performed at [facility] on 10/20/2017. Findings note diffuse bone demineralization. [facility] [address] [place] [address] PAIN MANAGEMENT CONSULTATION Name: AYDEN RINALDI Room #: REG [facility]#: [id number] Admission: 11/13/17 Attend Phys: Ismael Edwards DO Discharge: Date of : 30 Report #: [id number] spondylolisthesis at L5-S1, some mild lumbar levoscoliosis is noted. Moderate to severe narrowing at L5-S1 interspace. Atherosclerotic calcifications near the renal artery noted incidentally. No comment made regarding the patchy infiltration noted on the MRI, suspect this is simply related to the generalized demineralization. Along with this, CT scan of the pelvis was accomplished, status post right total hip arthroplasty, degenerative changes are noted, SI joints demonstrate some mild sclerotic changes. Left hip osteoarthritis, status post right total hip arthroplasty. Long discussion with the patient and her daughter today about therapeutic options. We had weaned completely off of opiates at one point last year, back up to OxyContin 30 mg b.i.d. She feels that really the opiates do not necessarily affect her pain. I pointed out that intrathecal pump is merely a different way to deliver opiates as the pain is not terribly opiate sensitive. This treatment option might not make as much sense. We had trialled a spinal cord stimulator 6 years ago back in 2011. At that time, the stimulators were lower frequency and the patient did have a lot of paresthesia, which she did not like. I did discuss the fact that high frequency stimulators at this point with the ability to have stimulation, which eclipses the body's ability to perceive stimulation completely limits the subjective paresthesia and has been associated with a better improved functional status for most patients. The patient is interested in possibly pursuing this option. She is also interested in intrathecal pump possible trial. I suggested that if we were to trial this, I would defer to Dr. Ferraro. He has been doing intrathecal pump trials in a very academic manner, placing an intrathecal catheter and utilizing multi-dosing including a placebo dose for evaluation of efficacy. Today, I did renew her OxyContin 30 mg b.i.d. I did take the liberty of adding oxycodone 5 mg up to t.i.d. for breakthrough pain. We reviewed the fact that opiate medications are being used to provide analgesia adequate to support activities of daily living, not attempting to achieve a specific pain score on the 0-10 Visual Analog Scale. The current opiate medications are providing sufficient analgesia to allow the patient to participate in activities of daily living. The patient is not exhibiting any aberrant behavior suggestive of drug diversion. The patient is not having any adverse reactions to medications. The patient is not suffering from daytime somnolence or mental acuity changes. The patient is managing opiate-induced constipation with appropriate [id number] agents and dietary considerations. The patient was counseled on concern for caution with operating a motor vehicle while using opiate medications. A physical exam was performed and the patient's functional status was evaluated. All patients with back pain were advised against the bed rest greater than 4 days and were advised to return to normal activities. Pain score assessment was [facility] [address] [place] [address] PAIN MANAGEMENT CONSULTATION Name: NIMCOAYDEN Room #: REG [facility].#: [id number] Admission: 11/13/17 Attend Phys: Ismael Edwards DO Discharge: Date of : 30 Report #: [id number] noted and the treatment plan was reviewed with the patient. All current medications, both prescribed and OTC were reviewed and reconciled on the electronic medical record. Tobacco screening was accomplished and smoking cessation was advised when indicated. BMI was noted and diet/exercise modification was recommended for all patients following outside normal parameters. I reviewed with the patient today their responsibilities to safeguard prescription medications, reviewed their responsibility to utilize medications only as prescribed by the physician. They are to seek and receive pain medications only from 1 physician group ( [facility]). They are to use 1 pharmacy and keep the clinic informed if they change pharmacies. Their responsibilities include making followup visits in a timely fashion and to avoid abrupt discontinuation of medication usage. Their responsibilities further include bringing their medications (bottles from the pharmacy with residual pills) to the visit for possible confirmation of pill counts and the patient understands it is their responsibility to submit to random drug screens to ensure both that the medications prescribed are present, and that no other controlled substances are present. All prescriptions provided today were generated electronically. Discharged in good and stable condition. I did give the patient print and video literature regarding high frequency Nevro spinal cord stimulator. <ELECTRONICALLY SIGNED> By: Ismael Edwards DO 11/19/17 0744 1204 1420 Ismael Edwards DO /nt
[2017-11-13 10:28] VITALS: BP 147/68
== END ==
LOC: PAIN 06:59
DX: M54.16 Radiculopathy, lumbar region (principal); M96.1 Postlaminectomy syndrome, not elsewhere classified; M47.897 Other spondylosis, lumbosacral region; Z79.899 Other long term (current) drug therapy

== ENCOUNTER → 2017-12-11 | Outpatient (CLI) | payer OTHER ==
[~2017-12-11] VITALS: Ht 157.5 cm; Wt 69.5 kg
[~2017-12-11] MED LIST changes: -ALLOPURINOL 10100 M1 PO
--- NOTE | ~2017-12-11 | HPC ---
[facility] [place] [address] PAIN MANAGEMENT CONSULTATION Name: NIMCOAYDEN Mary [id number] Admission: 12/11/17 Attend Phys: Ismael Edwards DO Discharge: Date of : 30 Report #: [id number] THIS REPORT FOR: //name// CC: Brock Edwards The patient is an 87-year-old female, prior seen in the pain clinic on 11/13/2017. She has ongoing lumbar radicular pain. I referred her to Dr. Ferraro, [facility], did not feel that she was a surgical candidate. Suggested to consider a spinal cord stimulator trial. We had trialled one in 2011, she did not like the paresthesia. I discussed at length last visit a high frequency spinal cord stimulator with no paresthesias. She seems to have forgotten a little bit about this. Returns to pain clinic today noting ongoing lumbar radicular pain going into both legs. She is requesting a repeat epidural injection, prior injection back in March afforded good relief for a number of months. Currently, she does note pain is 6-7 on a VAS. Pain in the buttocks, lateral legs and thighs to the feet. Exacerbated with standing, walking and bending. Burning dysesthesia quality. PHYSICAL EXAMINATION: Shows an 87-year-old female, BMI is 28 kilograms per meter squared. Blood pressure is 137/52, pulse 61, respirations are 20. She is alert and oriented to person, place, and time, judged to be a reasonable historian. Rises from chair using armrest, modestly antalgic gait, positive straight leg raise on the right greater than the left, but definitely bilaterally. ASSESSMENT: Symptomatic lumbar radiculopathy status post decompressive laminectomy. RECOMMENDATIONS: 1. Epidural injection under fluoroscopy today at L4-L5. 2. We again reviewed issues regarding spinal cord stimulator. I think she will be an excellent candidate for high frequency stimulator. She has contact information regarding psychologist required by most third libertarian payers. PROCEDURE: Lumbar epidural injection under fluoroscopy. The patient off of Eliquis for 3 days. PROCEDURE NOTE: After both written and informed consent to include risk of spinal cord damage, increased pain, weakness and dural puncture, the patient was taken to the fluoroscopy suite, placed in the prone position. After sterile prep and drape, a skin wheal with lidocaine was raised. A 22-gauge epidural Tuohy needle was inserted in the midline at L4-L5 with good loss to resistance. Negative aspiration for cerebrospinal fluid or blood was noted. Then 1 mL of Omnipaque under biplanar fluoroscopy showed good spread within the epidural [address] [address] PAIN MANAGEMENT CONSULTATION Name: AYDEN RINALDI Room #: REG RIGOBERTO Burkett#: [id number] Admission: 12/11/17 Attend Phys: Ismael Edwards DO Discharge: Date of : 30 Report #: [id number]. This was followed with 80 mg of triamcinolone plus 1 mL of 1.5% preservative-free Xylocaine, 0.5 mL Xylocaine was then injected to flush the needle; it was removed. The patient was monitored for an appropriate period of time and discharged in good and stable condition. The patient was told to resume Eliquis tonight. Follow up as needed for consideration for spinal cord stimulator. <ELECTRONICALLY SIGNED> By: Ismael Edwards DO 12/15/17 0822 1402 2141 Ismael Edwards DO /nt
[2017-12-11 10:45] VITALS: BP 137/52
== END | disposition home or self-care (01) ==
LOC: PAIN 07:19
DX: M54.16 Radiculopathy, lumbar region (principal); G89.29 Other chronic pain; I12.9 Hypertensive chronic kidney disease with stage 1 through stage 4 chronic kidney disease, or unspecified chronic kidney disease; N18.3 Chronic kidney disease, stage 3 (moderate); Z79.899 Other long term (current) drug therapy; Z98.890 Other specified postprocedural states; Z88.8 Allergy status to other drugs, medicaments and biological substances; Z88.2 Allergy status to sulfonamides; Z79.891 Long term (current) use of opiate analgesic

== ENCOUNTER → 2018-07-31 | Outpatient (CLI) | payer OTHER ==
[~2018-07-31] VITALS: Ht 157.5 cm; Wt 70.9 kg
[~2018-07-31] MED LIST changes: +ALLOPURINOL 10100 M1 PO; +COLCHICINE0.6 MG PO; +SENSIPAR 30 MG30 M1 PO
--- NOTE | ~2018-07-31 | HPC ---
[facility] [place] [address] PAIN MANAGEMENT CONSULTATION Name: NIMCOAYDEN Room #: REG RIGOBERTO AkhtarJosseSeanJosse#: [id number] Admission: 07/31/18 Attend Phys: Stefania Meyer MD Discharge: Date of : 30 Report #: [id number] THIS REPORT FOR: //name// CC: Brock Meyer DATE OF SERVICE: 07/31/2018 FOLLOWUP HISTORY: Low back pain that radiates down into the left buttocks and down into the left leg and stops in the calf. HISTORY: The patient is an 88-year-old female who has been seen in the past because of lumbar radiculopathy. She has undergone epidural steroid injections in the low back area and gleaned benefits from these. She returns today indicating that her pain is problematic. States that she has had a court later trial, which was not successful. She returns today for an epidural steroid injection. Notes that the pain radiates down into both legs on occasion. She has findings which were consistent with spinal stenosis. She has gleaned greater than 50% improvement from epidural steroid injections after their completion in the past. She returns today for consideration of another epidural steroid injection to help control her mitigate her pain. ALLERGIES: COMPAZINE, HYDROCODONE/LORTAB, TIGAN, DITROPAN, SULFA, DYAZIDE, TRIAMTERENE, NAPROSYN, CIPRO, CEFTIN, AMLODIPINE, GABAPENTIN, CATAPRES, PROZAC, SERTRALINE, MEPERIDINE, valsartan, Vasotec, Lexapro, rivaroxaban. CURRENT MEDICATIONS: Oxycodone 30 mg b.i.d., allopurinol 100 mg daily, chlorthalidone 25 mg, Bystolic 5 mg, valsartan 80 mg total 160 mg, Eliquis 2.5 mg b.i.d., vitamin D 1000 units, Imodium, Levsin 0.125 mg t.i.d., Prilosec, for hiatal hernia, Colace 100 mg, Synthroid 0.05 mg, thyroid, Hytrin 2 mg b.i.d. PAIN CLINIC ASSESSMENT/PQRS: 1. History of osteoarthritis involving the shoulder. The patient undergone physical therapy with effects on her hand from rheumatoid arthritis. 2. Height 5 feet 2 inches, weight 156 pounds, BMI is 28.6. 3. Vital signs: Blood pressure 122/61, pulse 67, respiratory rate 16, room air saturation 100%. 4. Pain intensity 02/08. 5. Fall risk. The patient has not fallen in the last 3 months. 6. Blood thinner. The patient is on a blood thinner, Eliquis. 7. History of hypertension. The patient has been treated for hypertension. 8. Opioids greater than 6 weeks. The patient gets her opioid medications through her primary physician Dr. Wilson. 9. Risk assessment tool, low risk 1/3 for opioid use. 10. Functional assessment tool. [address] [address] PAIN MANAGEMENT CONSULTATION Name: AYDEN RINALDI Room #: REG CL Kwadwo#: [id number] Admission: 07/31/18 Attend Phys: Stefania Meyer MD Discharge: Date of : 30 Report #: [id number] 11. Recreational drug use. The patient denies use of recreational drugs. 12. The patient has never smoked. 13. Alcohol: The patient denies frequent use of alcoholic beverages. PHYSICAL EXAMINATION: GENERAL: The patient is a well-developed, well-nourished white female. Appears her stated age. She is alert and oriented x 3. Her affect is appropriate. Speech is fluent. HEENT: Normocephalic, atraumatic. Extraocular eye muscles intact. Sclerae nonicteric. Hearing is within normal limits. NECK: Without adenopathy or JVD. HEART: Regular rate. LUNGS: Generally clear. ABDOMEN: Nontender. EXTREMITIES: Upper extremity muscle strength is judged to be 4/5 for the major muscle groups. Strength is judged to be 4+5. The patient has pain and discomfort with pain is radiating down into the lumbar area in the L4-L5 distribution. The patient was informed of possible complication of the procedure, which could include but are not limited to infection, increased muscle soreness, headache, bleeding, worsening of pain, no improvement in pain and the patient elects to proceed. PROCEDURE NOTE: The patient was taken to the procedure area. She is assisted in getting on the examination table. A pillow was placed under her abdomen to bolster her for improve positioning. Her back was sterilely prepped in the L5-S1 area. A 0.25% bupivacaine was then injected in the left L4-L5 midline area. Numerous attempts at placing the epidural were unsuccessful. We then went to the L5-S1 area. This area had been sterilely prepped with Betadine and infiltrated with 0.25% bupivacaine. A 17-gauge Tuohy with loss of resistance technique was used to gain access to the epidural space. There was no CSF, heme or paresthesia. A total of 80 mg Depo-Medrol, 40 mg triamcinolone and 0.25% bupivacaine was injected. The patient tolerated the procedure well. A total of 24 seconds fluoroscopy time was used. The patient's pain decreased to 3 at the time of discharge. We would like to thank you for letting us participate in her care. We hope she continues to improve. IMPRESSION: 1. Lumbar radiculopathy with pain radiating down into the low back area with history of spinal stenosis. 2. Hypertension. 3. Thyroid disease. 4. Stomach problems. [facility] [address] [place] [address] PAIN MANAGEMENT CONSULTATION Name: PAULINOHELGAAYDEN Room #: REG [facility] [id number] Admission: 07/31/18 Attend Phys: Stefania Meyer MD Discharge: Date of : 30 Report #: [id number] 5. Emotional problems and then we would follow the recommendations in the procedure note. <ELECTRONICALLY SIGNED> By: Stefania Meyer MD 08/05/18 [id number] Stefania Meyer MD /nt
[2018-07-31 10:15] VITALS: BP 122/61
== END | disposition home or self-care (01) ==
LOC: PAIN 08:33
DX: M54.16 Radiculopathy, lumbar region (principal); G89.29 Other chronic pain; I10 Essential (primary) hypertension; E07.9 Disorder of thyroid, unspecified; K31.9 Disease of stomach and duodenum, unspecified; F98.9 Unspecified behavioral and emotional disorders with onset usually occurring in childhood and adolescence; Z88.2 Allergy status to sulfonamides; Z88.8 Allergy status to other drugs, medicaments and biological substances; Z79.891 Long term (current) use of opiate analgesic; Z79.899 Other long term (current) drug therapy; Z79.01 Long term (current) use of anticoagulants

== ENCOUNTER → 2018-11-13 | Outpatient (CLI) | payer OTHER ==
[~2018-11-13] VITALS: Ht 157.5 cm; Wt 69.4 kg
[~2018-11-13] MED LIST changes: +BYSTOLIC10 MG PO; +ROCALTROL0.25 MCG PO; +ROXICODONE5 MG PO
--- NOTE | ~2018-11-13 | HPC ---
[facility] [place] [address] PAIN MANAGEMENT CONSULTATION Name: AYDEN RINALDI Room #: REG [facility] CENTERJosse.#: [id number] Admission: 11/13/18 ������������������ Attend Phys: Stefania Meyer MD Discharge: ������������������ Date of : 30 Report #: [id number] THIS REPORT FOR: //name// CC: Brock Meyer DATE OF SERVICE: 11/13/2018 PRIMARY CARE PHYSICIAN: Brock Wilson MD CHIEF COMPLAINT: Back and leg pain. HISTORY: The patient is an 88-year-old female who has been seen in the pain clinic in the past. She has pain and discomfort in the lower portion of her back. Experiencing pain is radiating down to the left side and involves her calf on both sides. She has a perception of some weakness in her left leg. She has been using her hands to go up and down stairs. She feels that leg might give way. She is using a walker at all times at this juncture. She notes that the oxycodone is not providing a significant amount of relief. She has undergone epidural steroid injections in the past and found some benefit from these. Pain at this point is in the upper 3/4 region of her leg. ALLERGIES: COMPAZINE, HYDROCODONE, TIGAN, DITROPAN, SULFA, DYAZIDE, TRIAMTERENE, NAPROSYN, CIPRO, CEFTIN, AMLODIPINE, GABAPENTIN, CATAPRES, PROZAC, SERTRALINE, DEMEROL, VALSARTAN, VASOTEC, LEXAPRO, RIVAROXABAN. CURRENT MEDICATIONS: Oxycodone 30 mg b.i.d., allopurinol 100 mg, chlorthalidone 25 mg, Bystolic 5 mg, valsartan 80 mg a total of 160, Eliquis 2.5 mg, vitamin D 1000 units, Imodium, Levsin 0.125 mg t.i.d., Prilosec for hiatal hernia, Colace 100 mg, Synthroid 0.05 mg, thyroid, Hytrin 2 mg b.i.d. PAIN CLINIC ASSESSMENT/PQRS: 1. Osteoarthritic changes involving her shoulders. 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 2. Height 5 feet 2 inches, weight 153 pounds, BMI is 28.0. 3. VITAL SIGNS: Blood pressure 142/68, pulse 69, respiratory rate 16, room air saturation 97%. Pain intensity 7/10. 4. Fall risk. The patient has not fallen in the last 3 months. 5. Blood thinner. The patient is on Eliquis and has stopped this medication with the thought of undergoing an injection. 6. Hypertension. The patient has been treated for hypertension. 7. Opioids greater than 6 weeks. The patient receives her medication from the pain clinic. 8. Risk assessment tool, low risk for opioid use. 9. Functional assessment . 10. Recreational drug use. The patient denies use of recreational drugs. [address] [address] PAIN MANAGEMENT CONSULTATION Name: PAULNIOHELGAAYDEN Room #: REG FRANCISCOMorgan Burkett#: [id number] Admission: 11/13/18 ������������������ Attend Phys: Stefania Meyer MD Discharge: ������������������ Date of : 30 Report #: [id number] 11. Tobacco: The patient has never smoked. 12. Alcohol: The patient denies use of alcoholic beverages. PHYSICAL EXAMINATION: GENERAL: The patient is a well-developed, well-nourished 88-year-old female. Appears her stated age. She is alert and oriented x 3. Her affect is appropriate. Speech is fluent. HEENT: Normocephalic, atraumatic. Extraocular eye muscles intact. Sclerae nonicteric. Mucous membranes are moist. NECK: Without adenopathy or JVD. HEART: Regular. LUNGS: Clear. ABDOMEN: Nontender. EXTREMITIES: Upper extremity muscle strength is judged to be of 4-/5 for the major muscle groups in the upper extremity. The patient has some pain and discomfort that is radiating down in the L3-L4 dermatomal distribution at this juncture, complains of some weakness. Has been using her cane. Has not fallen. IMPRESSION: Lumbar radiculopathy involving the L3-L4 distribution. RECOMMENDATIONS: We discussed treatment options with the patient. Risks and benefits of an epidural steroid injection were discussed. Possible complications of the procedure were reviewed. The patient elects to proceed. PROCEDURE NOTE: The patient was taken to the procedure area. She is assisted in getting on the examination table. Her back was sterilely prepped with a Betadine solution. 0.25% bupivacaine was infiltrated into the L3-L4 area. A 17-gauge Tuohy with loss of resistance technique was used to gain access to the epidural space. There was no CSF, heme or paresthesia. Total of 80 mg Depo-Medrol, 40 mg triamcinolone and 2 mL of 0.25% bupivacaine was injected. The patient tolerated the procedure well. She remained in the Pain Clinic for an appropriate amount of time. She will follow up in the future as needed. We would like to thank you for letting us participate in her care. Hope she continues to improve. ��������������������������������������������� ���������������������������������������� By: ��������������������������������������������� [id number] Stefania Meyer MD /SLAVA
[2018-11-13 10:17] VITALS: BP 142/68
--- NOTE | 2018-11-13 10:22 | NUR ---
Pain Clinic Assessment: 1. 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 Height: 5 ft. 2 in. 157.5 cm. Weight: 153.0 lb. oz. 69.400 kg. Patient's BMI: 28.0 3. Vital Signs: BP: 142/68 Pulse: 69 Resp: 16 Temp: 02 Sat: 97 ECG Mon: 4. Pain Intensity: 7 5. Fall Risk: Dizziness: N Needs help standing or walking: N Fallen in the last 3 months: N Fall risk comments: 6. Patient on Blood Thinner: MONSE 7. History of Hypertension: Y 8. Opioid Therapy greater than 6 weeks: N Opiate Contract Signed: 03/07/17 9. Risk Assessment Tool Provided: LOW RISK 1 10. Functional Assessment Tool: 11. Recreational Drug Use: Never Drug Type: Tobacco Use: Never Smoker Tobacco Type: Amount or Packs/day: How Many Years: Alcohol Use: No Frequency: Quant:
== END | disposition home or self-care (01) ==
LOC: PAIN 06:50
DX: M54.16 Radiculopathy, lumbar region (principal); G89.29 Other chronic pain; M19.011 Primary osteoarthritis, right shoulder; M19.012 Primary osteoarthritis, left shoulder; M06.2 Rheumatoid bursitis; I12.9 Hypertensive chronic kidney disease with stage 1 through stage 4 chronic kidney disease, or unspecified chronic kidney disease; N18.3 Chronic kidney disease, stage 3 (moderate); Z79.01 Long term (current) use of anticoagulants; Z79.899 Other long term (current) drug therapy; Z88.8 Allergy status to other drugs, medicaments and biological substances; Z86.718 Personal history of other venous thrombosis and embolism; Z88.2 Allergy status to sulfonamides; Z98.890 Other specified postprocedural states

== ENCOUNTER → 2019-02-22 | Outpatient (CLI) | payer OTHER ==
[~2019-02-22] VITALS: Ht 157.5 cm; Wt 69.1 kg
[~2019-02-22] MED LIST changes: +ULORIC40 MG PO
[2019-02-22 10:43] VITALS: BP 135/70
--- NOTE | 2019-02-22 10:59 | NUR ---
Pain Clinic Assessment: 1. 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 Height: 5 ft. 2 in. 157.5 cm. Weight: 152.4 lb. oz. 69.128 kg. Patient's BMI: 27.9 3. Vital Signs: BP: 135/70 Pulse: 70 Resp: 16 Temp: 02 Sat: 99 ECG Mon: 4. Pain Intensity: 5 5. Fall Risk: Dizziness: N Needs help standing or walking: N Fallen in the last 3 months: N Fall risk comments: 6. Patient on Blood Thinner: ANAHIS 7. History of Hypertension: Y 8. Opioid Therapy greater than 6 weeks: N Opiate Contract Signed: 03/07/17 9. Risk Assessment Tool Provided: LOW RISK 1 10. Functional Assessment Tool: 11. Recreational Drug Use: Never Drug Type: Tobacco Use: Never Smoker Tobacco Type: Amount or Packs/day: How Many Years: Alcohol Use: No Frequency: Quant:
--- NOTE | 2019-02-23 13:28 | HPC ---
[facility] [place] [address] PAIN MANAGEMENT CONSULTATION Name: AYDEN RINALDI Room #: REG [facility].#: [id number] Admission: 02/22/19 ������������������ Attend Phys: Lise Peña Discharge: ������������������ Date of : 30 Report #: [id number] THIS REPORT FOR: //name// CC: Lise Wilson MD DATE OF SERVICE: 02/22/2019 CHIEF COMPLAINT: Back pain and left hip pain. HISTORY OF PRESENT ILLNESS: This is an 88-year-old female who has returned to the pain clinic today for a refill of her oxycodone. She tells me that she has been experiencing increasing pain in her left hip that does radiate towards her left knee. She feels that her leg is weaker than it was before. She has not fallen, but uses her walker at all times as she feels like she would give out. She tells me that she is going to talk to Dr. Wilson about seeing an orthopedic. She believes that this pain is in her hip, not from her back radiating into her hip. She does have low back pain as well. Her pain score today is 5/10, worse with walking and activity and standing. Medications are helpful as well as sitting. The patient tells me she has no problems with constipation as long as she takes [id number] medications and no problems with daytime sleepiness. We did talk about the fact that she is getting her long-acting OxyContin from Dr. Wilson and at her last visit in October, when she had her lumbar epidural steroid injection by Dr. Meyer, he did discuss that he would be willing to have Dr. Wilson write her oxycodone 5 mg tablets as well to make it more convenient for the patient; therefore, she does not have two doctors writing her narcotics. The patient tells me she must have not heard that part of the conversation because she agreed that would be easier for her to get everything from one physician. I explained to her we will write one prescription today and then Dr. Wilson could write for it in the future. Then if she needs to return to us for epidurals, she can gladly have those done. She tells me the epidural was quite helpful and she had not realized that it had had already been 3 months since her last injection. She tells me that she is on her Xarelto today, so she will make an appointment since it helped her at least 50% for greater than a month. She will call for an appointment when she feels that she needs to have an epidural performed again. ALLERGIES: COMPAZINE, TOLIN, TIGAN, DITROPAN, SULFA, HYDROCODONE, HYDROCHLOROTHIAZIDE, DYAZIDE, NAPROXEN, CIPRO, ADHESIVE, CEFTIN, AMLODIPINE, GABAPENTIN, CLONIDINE, ENALAPRIL, PROZAC, ZOLOFT, DEMEROL, VALSARTAN, LEVOFLOXACIN AND LEXAPRO. CURRENT LIST OF MEDICATIONS: Uloric, oxycodone 5 mg, potassium 10 mEq, Bystolic 10 mg, calcitriol, OxyContin 30 mg b.i.d., chlorthalidone 25 mg, Eliquis [address] [address] PAIN MANAGEMENT CONSULTATION Name: AYDEN RINALDI Room #: REG [facility].#: [id number] Admission: 02/22/19 ������������������ Attend Phys: Lise DOT COMPLIANCE MANAGER Hocker Discharge: ������������������ Date of : 30 Report #: [id number] 2.5 mg, vitamin D, hyoscyamine p.r.n., Prilosec, Colace, Synthroid 50 mcg and Hytrin 2 mg. 1. PQRS: The patient has arthritic changes involving her shoulders and her hips and rheumatoid arthritis in her hands. Height is 5 feet 2 inches, weight is 152, BMI is 27. Vital signs, 135/70, pulse is 70, respirations 16 and oxygen sat 99. Pain score is 5/10. Fall risk, denies dizziness. Does need help walking, uses a walker, and has not fallen in the last 3 months. Blood thinners, she is on Eliquis. She does take medicine for hypertension. Opioid therapy is greater than 6 weeks; therefore, an opioid signed contract is not on the chart since she gets them from two doctors. Risk assessment is low. Functional assessment is 42/70. Recreational drug use, she denies. She is not a smoker and does not drink alcohol. 2. We did check the prescription monitoring system. The patient is filling appropriately for her medications and we did encourage her to get them from one physician, Dr. Wilson. PHYSICAL EXAMINATION: GENERAL: This patient is a well-developed, well-nourished 88-year-old female, who appears her stated age. She is alert and orientated and her affect is appropriate. HEENT: Normocephalic, atraumatic. Extraocular eye muscles are intact. Mucous membranes are moist. NECK: Without adenopathy or JVD. EXTREMITIES: Upper extremity strength judged to be 4/5 for major muscle groups in the upper extremities. The patient does complain of some lumbar back tenderness. The patient's pain is in her left hip today, worse with weightbearing. Does have pain with flexion and extension. Lower extremity strength judged to be 4/5 bilaterally. 1. IMPRESSION: 2. 1. Lumbar radiculopathy involving the L3-L4 distribution, left hip pain. 3. 2. Osteoarthritis. 3. Complex medical management of opioid medications. We reviewed the fact that opiate medications are being used to provide analgesia adequate to support activities of daily living, not attempting to achieve a specific pain score on the 0-10 Visual Analog Scale. The current opiate medications are providing sufficient analgesia to allow the patient to participate in activities of daily living. The patient is not exhibiting any aberrant behavior suggestive of drug diversion. The patient is not having any adverse reactions to medications. The patient is not suffering from daytime somnolence or mental acuity changes. The patient is managing opiate-induced constipation with appropriate ycur-klk-biumywn agents and dietary considerations. The patient was counseled on concern for caution with operating [address] [address] PAIN MANAGEMENT CONSULTATION Name: NIMCOAYDEN Mary Room #: REG [facility].#: [id number] Admission: 02/22/19 ������������������ Attend Phys: Lise Peña Discharge: ������������������ Date of : 30 Report #: [id number] a motor vehicle while using opiate medications. A physical exam was performed and the patient's functional status was evaluated. All patients with back pain were advised against the bed rest greater than 4 days and were advised to return to normal activities. Pain score assessment was noted and the treatment plan was reviewed with the patient. All current medications, both prescribed and OTC were reviewed and reconciled on the electronic medical record. Tobacco screening was accomplished and smoking cessation was advised when indicated. BMI was noted and diet/exercise modification was recommended for all patients following outside normal parameters. I reviewed with the patient today their responsibilities to safeguard prescription medications, reviewed their responsibility to utilize medications only as prescribed by the physician. They are to seek and receive pain medications only from 1 physician group ( [facility]). They are to use 1 pharmacy and keep the clinic informed if they change pharmacies. Their responsibilities include making followup visits in a timely fashion and to avoid abrupt discontinuation of medication usage. Their responsibilities further include bringing their medications (bottles from the pharmacy with residual pills) to the visit for possible confirmation of pill counts and the patient understands it is their responsibility to submit to random drug screens to ensure both that the medications prescribed are present, and that no other controlled substances are present. All prescriptions provided today were generated electronically. PLAN: 1. We discussed treatment options with the patient today. I encouraged the patient to get her narcotics from one physician and I believe that Dr. Wilson since she writes her OxyContin 30 mg tablets, that he would be willing to write her oxycodone. That would be easier for the patient if she would get them only from him. The patient tells me that she will talk to him about this. 2. I encouraged the patient if she needs another epidural steroid injection to make sure she is able to go off her blood thinner and then call for an appointment. It has been greater than 3 months since her last injection, which she received at least 50% improvement for greater than one month. 3. The patient has been complaining of left hip pain. She will speak with Dr. Wilson regarding Orthopedic that she should go to since the one that had replaced her right hip, she believes, is retired since it was 20 years ago. 4. Prescription given today for oxycodone 5 mg b.i.d., #[address] Patricio Faulkner did see the patient and collaborated care today. ��������������������������������������������� <ELECTRONICALLY SIGNED> ���������������������������������������� By: Lise Peña ��������������������������������������������� 02/23/19 1328 [id number] Lise Peña /racheal
== END ==
LOC: PAIN 06:48
DX: M54.16 Radiculopathy, lumbar region (principal); M16.12 Unilateral primary osteoarthritis, left hip; Z79.891 Long term (current) use of opiate analgesic; Z88.8 Allergy status to other drugs, medicaments and biological substances; Z88.2 Allergy status to sulfonamides

== ENCOUNTER → 2019-04-30 | Outpatient (CLI) | payer OTHER ==
[~2019-04-30] VITALS: Ht 160 cm; Wt 65.8 kg
--- NOTE | ~2019-04-30 | HPC ---
[facility] [place] [address] PAIN MANAGEMENT CONSULTATION Name: AYDEN RINALDI Mary Room #: REG RIGOBERTO BeatriceSeanJosse#: [id number] Admission: 04/30/19 ������������������ Attend Phys: Stefania Meyer MD Discharge: ������������������ Date of : 30 Report #: [id number] THIS REPORT FOR: //name// CC: Brock Meyer DATE OF SERVICE: 04/30/2019 CHIEF COMPLAINT: "Pain radiating down into the left knee area." HISTORY: The patient is an 89-year-old female who has been seen in the past and undergone injections because of chronic pain involving her legs. She continues to have some pain and discomfort in lower portion of her back. Pain that radiates down the left side also involves her calf. She has had some perception of weakness in the left leg. She uses her hands when going up and down stairs. She feels that her leg might give way. She continues to walk with a walker. She finds that the oxycodone medication is helpful. Rates her pain today as a 6/10 with the hopes of undergoing an injection. ALLERGIES: COMPAZINE, HYDROCODONE/LORTAB, TIGAN, DITROPAN, SULFA, DYAZIDE, TRIAMTERENE, NAPROSYN, CIPRO, CEFTIN, AMLODIPINE, GABAPENTIN, CATAPRES, PROZAC, SERTRALINE, DEMEROL, VALSARTAN, VASOTEC, LEXAPRO, RIVAROXABAN. CURRENT MEDICATIONS: Oxycodone 30 mg b.i.d., allopurinol 100 mg, chlorthalidone 25 mg, Bystolic 5 mg, valsartan 80 mg total of 160 mg, Eliquis 2.5 mg, vitamin D 1000 units, Imodium, Levsin 0.125 mg t.i.d., Prilosec for hiatal hernia, Colace 100 mg, Synthroid 0.05 mg, thyroid, Hytrin 2 mg b.i.d. PAIN CLINIC ASSESSMENT AND PQRS: 1. The patient has some pain and discomfort in her shoulders. Also, complains of some rheumatoid arthritic changes involving in her hand. She is not being followed by a debug technician. Left hip arthritic changes. 2. Height 5 feet 2 inches, weight 153 pounds, BMI is 28.0. 3. Vital Signs: Blood pressure 142/68, pulse 69, respiratory rate 16, room air saturation 97%. 4. Pain intensity 7/10. 5. Fall history: The patient has not fallen in the last 3 months. 6. Blood thinner. The patient is on Eliquis. She has stopped taking this medication. 7. Hypertension. The patient is being treated for hypertension. 8. Opioids greater than 6 weeks. The patient receives medications from one source, the pain clinic. 9. Risk assessment tool, low for opioid use. 10. Functional assessment tool 42/70. 11. Recreational drug use. The patient denies. 12. Tobacco: The patient has never smoked. [address] [address] PAIN MANAGEMENT CONSULTATION Name: PAULINOHELGAAYDEN Room #: KYLER RIGOBERTO Burkett#: [id number] Admission: 04/30/19 ������������������ Attend Phys: Stefania Meyer MD Discharge: ������������������ Date of : 30 Report #: [id number] 13. Alcohol. The patient denies frequent use of alcoholic beverages. PHYSICAL EXAMINATION: GENERAL: The patient is a well-developed, well-nourished white female. Appears her stated age of 89 years. She is alert and oriented x 3. Her affect is appropriate. Speech is fluent. HEENT: Normocephalic, atraumatic. Extraocular eye muscles intact. Sclerae nonicteric. Mucous membranes are moist. NECK: Without adenopathy or JVD. HEART: Regular rate. LUNGS: Clear to auscultation. ABDOMEN: Nontender. EXTREMITIES: Upper extremity muscle strength judged to be 4-/5 for the major muscle groups in the upper extremity. The patient has pain and discomfort in the left L4-L5 dermatomal distribution with some weakness and tenderness. The patient continues to ambulate with a cane. IMPRESSION: 1. Lumbar radiculopathy involving the L4-L5 dermatomal distribution. 2. Hypertension. 3. Thyroid disease. 4. Stomach problems. 5. Emotional problems. RECOMMENDATIONS: We discussed treatment options with the patient. Risks and benefits of an epidural steroid injection were discussed. Possible complications of the procedure, which could include but are not limited to infection, worsening of pain, no improvement in pain were discussed and the patient elects to proceed. Given that the patient is having pain on the left as well as the right side today we will proceed with a transforaminal approach at both left and right sides. PROCEDURE NOTE: The patient was taken to the procedure area. She was then assisted in getting on the examination table. Her back was sterilely prepped with a Betadine solution. A pillow was placed under the abdomen to bolster and improve positioning. A skin wheal was placed on the left as well as the right L4-L5 area. A 25-gauge needle was then used to anesthetize the area in the left as well as in the right L5-L4 area. A transforaminal approach was undertaken at both the left and the right L4-L5 areas. A 20-gauge spinal needle was then advanced on the left side. After appropriate placement, a total of 80 mg Depo-Medrol was injected. The patient tolerated this fine. The contralateral left side was treated in a like fashion. A total of 80 mg Depo-Medrol was injected in this area. The patient's pain decreased from 6 to 0 at the time of discharge. She will follow up in the future as needed. [address] [address] PAIN MANAGEMENT CONSULTATION Name: AYDEN RINALDI Mary [facility] [id number] Admission: 04/30/19 ������������������ Attend Phys: Stefania Meyer MD Discharge: ������������������ Date of : 30 Report #: [id number] We would like to thank you for letting us participate in her care. We hope she continues to improve. ��������������������������������������������� ���������������������������������������� By: ��������������������������������������������� 1618 [id number] Stefania Meyer MD /racheal
[2019-04-30 13:23] VITALS: BP 136/67
--- NOTE | 2019-04-30 13:29 | NUR ---
Pain Clinic Assessment: 1. 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 Height: 5 ft. 3 in. 160.0 cm. Weight: 145.0 lb. oz. 65.772 kg. Patient's BMI: 25.7 3. Vital Signs: BP: 136/67 Pulse: 64 Resp: 18 Temp: 02 Sat: 97 ECG Mon: 4. Pain Intensity: 6 5. Fall Risk: Dizziness: Y Needs help standing or walking: N Fallen in the last 3 months: N Fall risk comments: STATES DIZZY WHEN PAIN GETS SO INTENSE. 6. Patient on Blood Thinner: ELIQUIIS 7. History of Hypertension: Y 8. Opioid Therapy greater than 6 weeks: N Opiate Contract Signed: 03/07/17 9. Risk Assessment Tool Provided: LOW RISK 1 10. Functional Assessment Tool: 11. Recreational Drug Use: Never Drug Type: Tobacco Use: Never Smoker Tobacco Type: Amount or Packs/day: How Many Years: Alcohol Use: No Frequency: Quant:
== END | disposition home or self-care (01) ==
LOC: PAIN 09:21
DX: M54.16 Radiculopathy, lumbar region (principal); G89.29 Other chronic pain; I12.9 Hypertensive chronic kidney disease with stage 1 through stage 4 chronic kidney disease, or unspecified chronic kidney disease; N18.3 Chronic kidney disease, stage 3 (moderate); D64.9 Anemia, unspecified; E07.9 Disorder of thyroid, unspecified; Z87.19 Personal history of other diseases of the digestive system; Z79.899 Other long term (current) drug therapy; Z79.01 Long term (current) use of anticoagulants; Z98.890 Other specified postprocedural states; Z88.2 Allergy status to sulfonamides; Z88.8 Allergy status to other drugs, medicaments and biological substances; Z86.718 Personal history of other venous thrombosis and embolism

== ENCOUNTER → 2019-08-13 | Outpatient (CLI) | payer OTHER ==
[~2019-08-13] VITALS: Ht 157.5 cm; Wt 67.9 kg
--- NOTE | ~2019-08-13 | HPC ---
[facility] [place] [address] PAIN MANAGEMENT CONSULTATION Name: NIMCOAYDEN Mary Room #: REG RIGOBERTO Beatrice.#: [id number] Admission: 08/13/19 Attend Phys: Stefania Meyer MD Discharge: Date of : 30 Report #: [id number] THIS REPORT FOR: //name// CC: Brock Meyer DATE OF SERVICE: 08/13/2019 CHIEF COMPLAINT: "Having pain that is going down my left and right leg again." HISTORY: The patient is an 89-year-old female who has been followed in the pain clinic because of lumbar radiculopathy. She has undergone epidural steroid injections in the past. She has had back surgery. She is having pain that is radiating down in her area of her legs. She has had a similar pain in the past. Epidural steroid injections were beneficial. She has returned today with hopes of undergoing an injection to help quell the pain and discomfort which she is experiencing down into her legs. She rates the pain as a 6 in intensity. Pain is worse when she is walking and standing. Improves somewhat when she is sitting. It involves the left buttocks radiating down to the left leg to the level of knee as well as the right side is similarly affected in the L4-L5 area. ALLERGIES: COMPAZINE, HYDROCODONE AND LORTAB, TIGAN, DITROPAN, SULFA, DYAZIDE, TRIAMTERENE, NAPROSYN, CIPRO, CEFTIN, AMLODIPINE, GABAPENTIN, CATAPRES, PROZAC, SERTRALINE, DEMEROL, VALSARTAN, VASOTEC, LEXAPRO, RIVAROXABAN. CURRENT MEDICATIONS: 1. Oxycodone 30 mg b.i.d. 2. Allopurinol 100 mg. 3. Chlorthalidone 25 mg. 4. Bystolic 5 mg. 5. Valsartan 80 mg, total of 160 mg. 6. Eliquis 2.5 mg. 7. Vitamin D 1000 units. 8. Imodium. 9. Levsin 0.125 mg t.i.d. 10. Prilosec for hiatal hernia. 11. Colace 100 mg. 12. Synthroid 0.05 mg. 13. Thyroid. 14. Hytrin 2 mg b.i.d. PAIN CLINIC ASSESSMENT AND PQRS: 1. The patient has some pain and discomfort in her shoulders. Also, complains of pain because of rheumatoid arthritis in her hands. She is not being treated by plastic eye technician. Has a left hip arthritic changes. 2. Vital Signs: Blood pressure 179/71, pulse 70, respiratory rate 16, [place] [address] PAIN MANAGEMENT CONSULTATION Name: AYDEN RINALDI Mary Room #: REG [facility].#: [id number] Admission: 08/13/19 Attend Phys: Stefania Meyer MD Discharge: Date of : 30 Report #: [id number] saturation 97%. Height 5 feet 2 inches, weight 149 pounds, BMI is 27.4. 3. Pain intensity 6/10. PHYSICAL EXAMINATION: GENERAL: The patient is a well-developed, well-nourished white female. Appears her stated age of [age] years old. She is alert and oriented x 3. Her affect is appropriate. Speech is fluent. HEENT: Normocephalic, atraumatic. Extraocular eye muscles are intact. Sclerae nonicteric. Mucous membranes are moist. NECK: Without adenopathy or JVD. HEART: Regular rate. LUNGS: Generally clear. ABDOMEN: Nontender. EXTREMITIES: Upper extremity muscle strength judged to be 4-/5 for the major muscle groups in the upper extremity. The patient has pain and discomfort in the L4-L5 dermatomal distribution with weakness and tenderness in the left and right L4-L5 dermatomal distribution. The patient is ambulating with a cane. IMPRESSION: 1. Lumbar radiculopathy, left and right at L4-L5. 2. Hypertension. 3. Hypothyroidism. 4. Stomach problems. 5. Emotional problems. RECOMMENDATIONS: We discussed treatment options with the patient. Risks and benefits of an epidural steroid injection using the transforaminal approach was discussed. The patient has gleaned benefits from the last injection. She has had no complications. We discussed the possible complications, which could include but are not limited to infection, worsening pain, no improvement in pain, nerve damage, bleeding, infection. The patient elects to proceed. PROCEDURE NOTE: The patient was taken to the procedure area. She was then assisted in getting on examination table. A pillow was placed on the abdomen to bolster and improve positioning. Fluoroscopy using anterior, posterior as well as lateral viewing were implemented. The patient's back was sterilely prepped with a Betadine solution and allowed to dry. A 0.25% bupivacaine was infiltrated at the L4 and left and right transforaminal areas. After appropriate anesthetizing of the right side. A 20-gauge spinal needle was then advanced into the area. Appropriate placement was noted. A total of 80 mg Depo-Medrol was injected on this side. The contralateral left side was treated in a similar fashion. A 20-gauge spinal needle using the transforaminal approach was placed in appropriate positioning. It was then injected with 80 mg Depo-Medrol. The patient tolerated the procedure well. There were no complications. The patient's pain decreased to 4 at the time of discharge. A total of 11 seconds fluoroscopy time was used. [facility] [address] [place] [address] PAIN MANAGEMENT CONSULTATION Name: AYDEN RINALDI Mary Room #: REG [facility]#: [id number] Admission: 08/13/19 Attend Phys: Stefanai Meyer MD Discharge: Date of : 30 Report #: [id number] We would like to thank you for letting us participate in her care. We hope she continues to improve. By: [id number] [id number] Stefania Meyer MD /nt
[2019-08-13 11:21] VITALS: BP 179/71
--- NOTE | 2019-08-13 11:48 | NUR ---
Pain Clinic Assessment: 1. 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 Height: 5 ft. 2 in. 157.5 cm. Weight: 149.8 lb. oz. 67.949 kg. Patient's BMI: 27.4 3. Vital Signs: BP: 179/71 Pulse: 70 Resp: 16 Temp: 02 Sat: 97 ECG Mon: 4. Pain Intensity: 6 5. Fall Risk: Dizziness: N Needs help standing or walking: Y Fallen in the last 3 months: N Fall risk comments: STATES DIZZY WHEN PAIN GETS SO INTENSE. 6. Patient on Blood Thinner: ELIQUIIS 7. History of Hypertension: Y 8. Opioid Therapy greater than 6 weeks: Y Opiate Contract Signed: 03/07/17 9. Risk Assessment Tool Provided: LOW RISK 1 10. Functional Assessment Tool: 11. Recreational Drug Use: Never Drug Type: Tobacco Use: Never Smoker Tobacco Type: Amount or Packs/day: How Many Years: Alcohol Use: Yes Frequency: Weekly Quant: 1 GLASS A COUPLE TIMES WEEKLY
== END | disposition home or self-care (01) ==
LOC: PAIN 07:34
DX: M54.16 Radiculopathy, lumbar region (principal); I10 Essential (primary) hypertension; E03.9 Hypothyroidism, unspecified; Z79.899 Other long term (current) drug therapy; Z88.8 Allergy status to other drugs, medicaments and biological substances

== ENCOUNTER → 2019-12-31 | Outpatient (CLI) | payer OTHER ==
[~2019-12-31] VITALS: Ht 157.5 cm; Wt 65.5 kg
[2019-12-31 10:52] VITALS: BP 114/64
--- NOTE | 2019-12-31 11:02 | NUR ---
Pain Clinic Assessment: 1. History of Osteoarthritis: SHOULDERS PER PT HANDS left hip BACK History of Rheumatoid Arthritis: NONE 2. Height: 5 ft. 2 in. 157.5 cm. Weight: 144.4 lb. oz. 65.499 kg. Patient's BMI: 26.4 3. Vital Signs: BP: 114/64 Pulse: 65 Resp: 16 Temp: 02 Sat: 100 ECG Mon: 4. Pain Intensity: 4 5. Fall Risk: Dizziness: Y Needs help standing or walking: Y Fallen in the last 3 months: N Fall risk comments: STATES DIZZY WHEN PAIN GETS SO INTENSE. 6. Patient on Blood Thinner: ELIQUIIS 7. History of Hypertension: Y 8. Opioid Therapy greater than 6 weeks: Y Opiate Contract Signed: 03/07/17 9. Risk Assessment Tool Provided: LOW RISK 1 10. Functional Assessment Tool: 11. Recreational Drug Use: Never Drug Type: Tobacco Use: Never Smoker Tobacco Type: Amount or Packs/day: How Many Years: Alcohol Use: Yes Frequency: Weekly Quant: 1-2
--- NOTE | 2020-01-07 13:39 | HPC ---
[facility] [place] [address] PAIN MANAGEMENT CONSULTATION Name: AYDEN RINALDI Room #: REG [facility] Yumiko.#: [id number] Admission: 12/31/19 Attend Phys: Stefania Meyer MD Discharge: Date of : 30 Report #: [id number] THIS REPORT FOR: cc: Brock Wilson MD,Brock Meyer,Stefania Granda MD ~ CC: Brock Meyer DATE OF SERVICE: 12/31/2019 CHIEF COMPLAINT: Severe pain down in the low back area, unable to walk because of the pain, so severe. HISTORY: The patient is an 89-year-old female who has been seen in the pain clinic in the past because of lumbar radiculopathy. She has had back pain, back surgery in the past. She has noticed a worsening of her pain and discomfort. She states that she was living with her son. He has a home, which [place] on about 4 acres. She has been somewhat secluded from the COVID-19 virus. At this point, she is having more and more discomfort. She is unable to engage in significant activity. She notes that going from one area of the house to the next, her pain is quite severe. She is limited. She generally has been sitting most of the time because of the severity of pain. She is now returning to her adult living area. She has been placed in quarantine for the next 15 days. Because her pain has been so severe she would like to proceed with an epidural injection. We discussed the risks and benefits of the procedure with the patient. She has stopped taking her blood thinner 5 days ago with the desire to undergo an epidural injection. ALLERGIES: COMPAZINE, HYDROCODONE, LORTAB, TIGAN, DITROPAN, SULFA, DYAZIDE, TRIAMTERENE, NAPROSYN, CIPRO, CEFTIN, AMLODIPINE, GABAPENTIN, CATAPRES, PROZAC, SERTRALINE, DEMEROL, , VASOTEC, LEXAPRO, . CURRENT MEDICATIONS: Eliquis 2.5 mg, last taken 5 days prior to the visit, Citracal 0.25 mcg capsules, chlorthalidone 25 mg, vitamin D 1000 units, docusate 100 mg, febuxostat 40 mg, Levsin 0.125 grams sublingual p.r.n. diarrhea, Synthroid 0.05 mg, Imodium A-D 2 mg, Bystolic 10 mg b.i.d., oxycodone 5 mg 1 p.o. every 4-6 hours p.r.n., OxyContin 30 mg b.i.d., potassium 10 mEq, Prilosec 20 mg, Hytrin 2 mg, 4 mg at bedtime, valsartan 160 mg b.i.d. PAIN CLINIC ASSESSMENT/PQRS: 1. The patient has pain and discomfort in her low back with pain in the left and right area with pain radiating down the low back area. The patient is not being treated by endoscopy specialty technician. Does have some left hip arthritis. 2. Vital Signs: Blood pressure 114/64, pulse 65, respiratory rate 16, room air saturation is 100%. Height was 5 feet 2 inches, weight 144 pounds, BMI is [address] [address] PAIN MANAGEMENT CONSULTATION Name: AYDEN RINALDI Room #: [facility] [id number] Admission: 12/31/19 Attend Phys: Stefania Meyer MD Discharge: Date of : 30 Report #: [id number] 26.4. 3. Pain intensity 4/10 when sitting, can rise to a much higher level with activity. 4. Fall risk. The patient notes that when she gets up and her pain is so intense that she sometimes feels dizzy. She has not fallen. Does feel sometimes in her left leg might give out. 5. Blood thinner. The patient is on Eliquis. She has not taken it for the last 5 days. 6. Hypertension. The patient is being treated for hypertension. 7. Opioids greater than 6 weeks. The patient receives medications from the pain clinic. 8. Risk assessment tool, low for opioid use. 9. Functional assessment tool 42/70. 10. Recreational drug use. The patient denies. 11. Tobacco: The patient has never smoked. 12. Alcohol: The patient drinks 1-2 alcoholic beverages weekly. PHYSICAL EXAMINATION: GENERAL: The patient is a well-developed, well-nourished white female. Appears her stated age. She is alert and oriented x 3. Her affect is appropriate. Speech is fluent. HEENT: Normocephalic, atraumatic. Extraocular eye muscles intact. The patient is wearing a mask. NECK: Without adenopathy or JVD. HEART: Regular rate. LUNGS: Generally clear. ABDOMEN: Nontender. EXTREMITIES: Upper extremity muscle strength judged to be 4-/5 for the major muscle groups in the upper extremity. The patient has pain and discomfort in the left as well as a right L4-L5 dermatomal distribution. IMPRESSION: 1. Lumbar radiculopathy, left and right L4-L5 dermatomal distribution. 2. Hypertension. 3. Hypothyroidism. 4. Stomach problems. 5. Emotional problems. RECOMMENDATIONS: We discussed treatment options with the patient. The patient states that her pain is extremely intense. She has been nauseated and sometimes feels dizzy because of the intensity of the pain. She is not very active. She goes from one area to the next and has been sitting more lately. She feels that her muscle strength continues to wane. She feels that an epidural steroid injection would be beneficial and she has gleaned benefits from them in the past. We explained to the patient risk. They involve COVID-19. She is aware that pandemic is problematic. She has been isolated/quarantine in her residence [address] [address] PAIN MANAGEMENT CONSULTATION Name: NIMCOAYDEN Room #: REG [facility]#: [id number] Admission: 12/31/19 Attend Phys: Stefania Meyer MD Discharge: Date of : 30 Report #: [id number] after she returned to her adult living quarters. She would not be able to go back into the population for 14 days. She states that her pain is so problematic and the weakness that she is beginning to notice may hinder her from improving in the future. The patient is aware of the possible complication of the procedure. We explained to the patient that patients with chronic pain are more susceptible to COVID-19. The patient's opioid medications may have altered or suppression in the immune system. The patient will be undergoing steroid injections may also find induced immune suppression. The patient feels overall that her condition continues to worsen and is willing to take the chance of improvement. PROCEDURE NOTE: The patient was taken to the procedure area. She was then assisted in getting on the examination table. A pillow was placed under her abdomen to bolster and improve positioning. Fluoroscopy using anterior, posterior as well as lateral viewing were implemented. The patient's back was sterilely prepped with a Betadine solution on the left as well as the right L4 areas. A 0.25% bupivacaine was infiltrated on the right L4-L5 area. A 25-gauge needle was then used to anesthetize the area. A 22-gauge spinal needle was then advanced into the appropriate L4-L5 position. This was done using the transforaminal approach. The left contralateral side was treated in a like fashion. A 0.25% bupivacaine was infiltrated at the L4-L5 area using the transforaminal approach. A 22-gauge spinal needle was then advanced into the appropriate place. A total of 40 mg Depo-Medrol, 20 mg triamcinolone was injected on both the left and the right side. The patient tolerated the procedure well. There were no complications. The patient was then taken to the procedure room. She remained there for an appropriate amount of time. She will follow up in the future. She will resume use of her Eliquis tomorrow. We would like to thank you for letting us to participate in her care. We hope she continues to improve. The patient remained sequestered to lessen the chance of contacting the COVID-19. <ELECTRONICALLY SIGNED> By: Stefania Meyer MD 01/07/20 1339 [id number] [id number] Stefania Meyer MD /SLAVA
== END | disposition home or self-care (01) ==
LOC: PAIN 07:25
DX: M54.16 Radiculopathy, lumbar region (principal); G89.29 Other chronic pain; I10 Essential (primary) hypertension; E03.9 Hypothyroidism, unspecified; Z98.890 Other specified postprocedural states; Z79.899 Other long term (current) drug therapy; Z88.8 Allergy status to other drugs, medicaments and biological substances; Z88.2 Allergy status to sulfonamides